=== PATIENT | female | born 1980 | race Hispanic/Latino ===

== ENCOUNTER 2020-11-22 17:33 | Emergency (ER) | payer BC, SELFPAY ==
[2020-11-22 17:49] VITALS: BP 119/64; PULSE 64; RESP 16; TEMP 36.6; O2SAT 100
--- NOTE | 2020-11-22 18:06 | ED.EAR ---
HPI - Ear Problem General Chief complaint: Ear Stated complaint: Ear Pain Time Seen by Provider: 11/22/20 18:06 Source: patient Mode of arrival: ambulatory Limitations: no limitations History of Present Illness HPI Narrative: Julia Portillo is a 40 yo female with a PMH of hypothyroid, HTN, [facility] with bilateral ear pain-left > right, bilateral ear pain since yesterday. Rates current pain as 6/10. Has taken Motrin and Tylenol. History history of sinus and ear problems; denies fever nausea vomiting diarrhea Related Data Home Medications Medication Instructions Recorded Confirmed hydrochlorothiazide 50 mg PO DAILY 11/22/20 11/22/20 levonorgestrel [Mirena] 1 device INTRAUTERINE ONCE 11/22/20 11/22/20 levothyroxine 75 mcg PO DAILY 11/22/20 11/22/20 losartan 50 mg PO DAILY 11/22/20 11/22/20 Allergies Allergy/AdvReac Type Severity Reaction Status Date / Time No Known Allergies Allergy Verified 11/22/20 17:55 Review of Systems Review of Systems: Narrative: CONSTITUTIONAL: Denies fever, chills, sweats. EYES: Denies visual changes, redness, discharge. ENT: Denies rhinorrhea, congestion, sore throat, otalgia. CARDIOVASCULAR: Denies chest pain, palpitations, edema. RESPIRATORY: Denies dyspnea, wheezing, cough GASTROINTESTINAL: Denies abdominal pain, nausea, vomiting, diarrhea. GENITOURINARY: Denies dysuria, hematuria, abnormal discharge SKIN: Denies rash or itching. NEUROLOGIC: Denies numbness, or focal weakness. PSYCHIATRIC: Denies anxiety or depression. PMFSH Past Medical History Medical History HTN (hypertension) with goal to be determined Hypothyroid Family History Family History Other Hypertension Social History Social History Smoking status: Never smoker Alcohol intake: never Gender identity (if verbalized by the patient): Female Comments At time of signature, I agree with nursing past medical, surgical, social and family history. There is no relevant family history pertinent to the presenting complaint. Exam Narrative: Exam Narrative: GENERAL: This is a well-nourished, well-developed patient, in moderate distress. HEAD: normocephalic, atraumatic. EYES: Sclera clear/white. Vision is grossly intact. EARS: External ears normal, auditory canals erythematous with R ear drainage, TMs erythema on R with fluid behind without perforation. Hearing grossly intact. NOSE: External nose normal without nasal discharge, nares without redness, no rhinorrhea. THROAT: Mucous membranes moist, posterior pharynx erythema NECK: Neck supple, CARDIOVASCULAR: Regular rate and rhythm without murmurs, gallops, or rubs. RESPIRATORY: Clear to auscultation. Breath sounds equal bilaterally. No wheezes, rales, or rhonchi. GASTROINTESTINAL: Abdomen soft, SKIN: warm, intact with no suspicious lesions or rash, good texture and turgor. NEURO: awake, alert, and oriented to person, place and time. There were no obvious focal neurologic abnormalities. Steady gait EXTREMITIES: Normal range of motion. BACK: Nontender without deformity Course Course Emergency Course: Patient started with bilateral ear pain yesterday and got progressively worse is unable to really chew or pressure in her teeth because of ear pain worse on the left than right; there is also draining Started on amoxicillin 500 mg 3 times daily x10 days, Flonase, Diflucan for fungal infection post antibiotic treatment Patient to continue Tylenol and tramadol for pain, push fluids (stop regular use of ibuprofen due to HTN) Vital Signs Vital signs: Vital Signs Temperature 97.9 F 11/22/20 17:49 Pulse Rate 64 11/22/20 17:49 Respiratory Rate 16 11/22/20 17:49 Blood Pressure 119/64 11/22/20 17:49 Pulse Oximetry 100 11/22/20 17:49 Temperature 97.9 F 11/22/20 17:49 Pulse R
== END 2020-11-22 18:21 | disposition home or self-care (01) ==
PROVIDERS: Emergency Provider Nurse Practitioner
DX: H66.003 Acute suppurative otitis media without spontaneous rupture of ear drum, bilateral (principal); E03.9 Hypothyroidism, unspecified; I10 Essential (primary) hypertension
CPT/HCPCS: 99213; G0463

== ENCOUNTER 2022-12-02 09:31 | Emergency (ER) | payer BC, OTHER, SELFPAY ==
[2022-12-02 09:52] VITALS: BP 143/73; PULSE 65; RESP 16; TEMP 37.2; O2SAT 98
--- NOTE | 2022-12-02 09:58 | ED.URI ---
HPI - URI/Sore Throat General Chief Complaint: Upper Respiratory Infection Stated Complaint: Sore Throat, Bodyaches, Fever Time Seen by Provider: 12/02/22 09:59 Source: patient and RN notes reviewed Mode of arrival: ambulatory Limitations: no limitations History of Present Illness HPI Narrative: 42-year-old female presents to the [facility] with complaints of sore throat, body aches and fevers. Symptoms started yesterday. Has taken [id number]-cbrygyo cold medicine, states that Advil is a only thing that is helping her. Has a history of hypothyroidism and hypertension. MD elicited complaint: fever and sore throat Onset (ago): day(s) (1) Related Data Home Medications Medication Instructions Recorded Confirmed hydrochlorothiazide 50 mg tablet 50 mg PO DAILY 11/22/20 12/02/22 levonorgestrel 20 mcg/24 hours (8 1 device intrauterine ONCE 11/22/20 12/02/22 yrs) 52 mg intrauterine device (Mirena) levothyroxine 75 mcg tablet 75 mcg PO DAILY 11/22/20 12/02/22 losartan 50 mg tablet 50 mg PO DAILY 11/22/20 12/02/22 Allergies Allergy/AdvReac Type Severity Reaction Status Date / Time No Known Allergies Allergy Verified 12/02/22 09:32 Review of Systems Review of Systems: All systems reviewed & are unremarkable except as noted in HPI and below Constitutional: Constitutional: Reports as per HPI, Reports body ache(s), Reports chills and Reports fatigue Eyes: Eyes: Reports no additional eye complaints ENT: Reports as per HPI and Reports sore throat Cardiovascular: Cardiovascular: Reports no additional cardiovascular complaints, Denies chest pain and Denies dyspnea Respiratory: Respiratory: Reports as per HPI, Denies chest congestion, Reports cough and Denies dyspnea Gastrointestinal: Gastrointestinal: Reports no additional gastrointestinal complaints, Denies abdominal pain, Denies nausea and Denies vomiting Musculoskeletal: Musculoskeletal: Reports no additional musculoskeletal complaints Integumentary/Breasts: Skin/Breast: Reports system reviewed and no additional complaints, except as docu Neurologic: Reports system reviewed and no additional complaints, except as documented Psychiatric: Psychiatric: Reports no additional psychiatric complaints Allergic/Immunologic: Allergic/Immunologic: Reports no additional allergic/immunologic complaints PMFSH Past Medical History Medical History (Updated 12/02/22 @ 10:39 by Tiffany Devine APRN) Acquired hypothyroidism Essential hypertension Family history of diabetes mellitus H/O gastroesophageal reflux (GERD) HTN (hypertension) with goal to be determined Hypothyroid Screening for hyperlipidemia Family History Family History Other Hypertension Social History Social History Smoking status: Never smoker Alcohol intake: never Gender identity (if verbalized by the patient): Female Comments At the time of my signature, I reviewed and agree with the nursing past medical, surgical, social, and family history. There is no relevant family history pertinent to the patient complaint. Exam Const: General: cooperative, healthy appearing, no acute distress, well developed, alert, uncomfortable and well nourished Nutritional Appearance: well nourished and obese Orientation/consciousness: patient oriented x3 Limitations: no limitations HENMT: Head: normal to inspection Ears: hearing grossly normal bilaterally and external ears normal Face/Nose/Sinus: Normal external nose present, Normal nares present, Normal nasal mucous membranes and turbinates present and normal facial exam Face and sinus: normal facial exam Mouth: Yes Normal oral and palatal mucosa present, Yes lip normal and Yes moist mucous membranes Throat: posterior oropharynx normal, uvula midline, abnormal tonsil on the left (Small tonsil noted center of tonsil anterior) no erythema, no exudates and no
== END 2022-12-02 10:48 | disposition home or self-care (01) ==
PROVIDERS: Emergency Provider Nurse Practitioner
DX: B34.9 Viral infection, unspecified (principal); Z20.822 Contact with and (suspected) exposure to COVID-19; E03.9 Hypothyroidism, unspecified; I10 Essential (primary) hypertension; K21.9 Gastro-esophageal reflux disease without esophagitis
CPT/HCPCS: 87081; 87426; 87804; 87880; 99213; C9803; G0463

== ENCOUNTER 2023-12-09 16:58 | Emergency (ER) | payer BC, OTHER, SELFPAY ==
[2023-12-09 17:12] VITALS: BP 131/86; PULSE 78; RESP 16; TEMP 37.1; O2SAT 99
--- NOTE | 2023-12-09 17:29 | ED.URI ---
HPI - URI/Sore Throat General Chief Complaint: Upper Respiratory Infection Stated Complaint: head congestion,ears popping Time Seen by Provider: 12/09/23 17:29 Source: patient Mode of arrival: ambulatory Limitations: no limitations History of Present Illness HPI Narrative: 43-year-old female presents with complaint of sinus congestion, nasal congestion, and sinus pressure a postnasal drainage, cough, headaches for the past 3 days. Taking [id number] [place] sinus and Mucinex cold and Sinus. Afebrile. No chest pain or shortness of breath. All systems reviewed and negative except as noted above. Related Data Home Medications Medication Instructions Recorded Confirmed hydrochlorothiazide 50 mg tablet 50 mg PO DAILY 11/22/20 12/09/23 levonorgestrel 21 mcg/24 hours (8 1 device intrauterine ONCE 11/22/20 12/09/23 yrs) 52 mg intrauterine device (Mirena) levothyroxine 75 mcg tablet 75 mcg PO DAILY 11/22/20 12/09/23 losartan 50 mg tablet 50 mg PO DAILY 11/22/20 12/09/23 tirzepatide 2.5 mg/0.5 mL 2.5 mg subcut WEEKLY 12/09/23 12/09/23 subcutaneous pen injector (Mounjaro) Allergies Allergy/AdvReac Type Severity Reaction Status Date / Time No Known Allergies Allergy Verified 12/02/22 09:32 [facility] Past Medical History Medical History (Updated 12/09/23 @ 17:38 by Aaliyah Layton NP) Acquired hypothyroidism Essential hypertension Family history of diabetes mellitus H/O gastroesophageal reflux (GERD) HTN (hypertension) with goal to be determined Hypothyroid Screening for hyperlipidemia Family History Family History Other Hypertension Social History Social History Smoking status: Never smoker Alcohol intake: never Gender identity (if verbalized by the patient): Female Comments At time of signature, agree with nursing past medical, surgical, social and family history. There is no relevant family history pertinent to the presenting complaint. Exam Narrative: GENERAL: This is a well-nourished, well-developed patient, in no apparent distress. HEAD: normocephalic, atraumatic. EYES: PERRL. Sclera clear/white. Vision is grossly intact. EARS: External ears normal, auditory canals clear and without drainage, TMs normal without perforation. Hearing grossly intact. NOSE: External nose normal with moderate congestion, clear nasal drainage THROAT: Mucous membranes moist, Erythema with postnasal drainage NECK: Neck supple, non-tender without lymphadenopathy, masses or thyromegaly. CARDIOVASCULAR: Regular rate and rhythm without murmurs, gallops, or rubs. RESPIRATORY: Clear to auscultation. Breath sounds equal bilaterally. No wheezes, rales, or rhonchi. SKIN: warm, Dry, intact with no suspicious lesions or rash, good texture and turgor. NEURO: awake, alert, and oriented to person, place and time. There were no obvious focal neurologic abnormalities. EXTREMITIES: No joint tenderness, effusion, or edema noted. Course Course Level of Care: Express Care Visit Vital Signs Vital signs: Vital Signs Temperature 37.1 C 12/09/23 17:12 Pulse Rate 78 12/09/23 17:12 Respiratory Rate 16 12/09/23 17:12 Blood Pressure 131/86 12/09/23 17:12 Pulse Oximetry 99 12/09/23 17:12 Oxygen Delivery Room Air 12/09/23 17:12 Temperature 37.1 C 12/09/23 17:12 Pulse Rate 78 12/09/23 17:12 Respiratory Rate 16 12/09/23 17:12 Blood Pressure 131/86 12/09/23 17:12 Pulse Oximetry 99 12/09/23 17:12 Oxygen Delivery Room Air 12/09/23 17:12 reviewed MDM - URI/Sore Throat MDM Narrative Medical decision making narrative: At time of signature, agree with nursing past medical, surgical, social and family history. There is no relevant family history pertinent to the presenting complaint. Differential Diagnosis Differential diagnosis: Likely other ( COVID)
== END 2023-12-09 17:45 | disposition home or self-care (01) ==
PROVIDERS: Emergency Provider Nurse Practitioner Family; PCP Internal Medicine
DX: U07.1 COVID-19 (principal); E03.9 Hypothyroidism, unspecified; I10 Essential (primary) hypertension; K21.9 Gastro-esophageal reflux disease without esophagitis
CPT/HCPCS: 87426; 87804; 99213; C9803; G0463